=== PATIENT | female | born 1930 | race Hispanic/Latino ===

== ENCOUNTER 2017-10-23 20:26 | Emergency (ER) | payer MEDICARE, BC ==
--- NOTE | 2017-10-23 21:38 | CT ---
CT OF THE BRAIN WITHOUT CONTRAST: 10/23/17 INDICATION: Fall with head injury. COMPARISON: Prior exam dated 08/31/09. FINDINGS: There is generalized cerebral and cerebellar atrophy. No acute infarct, hemorrhage or hydrocephalus i s present. There is mild chronic small vessel white matter ischemic change which is stable. There is a contusion involving the right frontal scalp. Skull is intact. Mastoid air cells are clear. IMPRESSION: No acute intracranial abnormality. POS: [facility]
--- NOTE | 2017-10-23 21:41 | CT ---
NONCONTRAST CT CERVICAL SPINE 10/23/17 INDICATION: Fall with neck pain. COMPARISON: None. FINDINGS: no acute fracture or subluxation is evident. There is some reversal of the normal cervical lordosis. There is advanced disc degenerative disease at C5-6 and C6-7. There are some marginal osteophytes see n projecting posteriorly within the spinal canal inducing at least mild to moderate osseous central c anal narrowing at C5-6 and mild osseous neural foraminal narrowing at C6-7. The craniocervical juncti on is within normal limits. Lung apices are clear. Prevertebral soft tissues are appear within normal limits. IMPRESSION: 1. No acute fracture or subluxation evident. 2. 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 POS: [facility]
[2017-10-23 21:43] LABS: #Basophils 0.1 thou/uL (0.0-0.2); #Eosinphils 0.3 thou/uL (0.0-0.7); #Lymphocytes 2.5 thou/uL (1.20-3.40); #Monocytes 0.7 thou/uL (0.11-0.59); #Neutrophils 4.8 thou/uL (1.40-6.50); %Basophils 1.3 % (0.0-1.0); %Eosinophils 3.1 % (0.0-10.0); %Lymphocytes 30.1 % (21.0-51.0); %Monocytes 8.2 % (0.0-10.0); %Neutrophils 57.4 % (42.0-75.0); Hemoglobin 12.5 g/dL (12.0-16.0); Mean Corpuscular Hemoglobin 29.3 pg (27.0-31.0); Mean Corpuscular Volume 88.8 fl (81.0-99.0); Mean Platelet Volume 7.5 fL (7.4-10.4); Platelet Count 278 thou/uL (130-400); RBC Distribution Width 12.2 % (11.5-14.5); Red Blood Cell (RBC) Count 4.26 mill/uL (4.20-5.40); White Blood Cell (WBC) Count 8.3 thou/uL (4.8-10.8)
[2017-10-23 21:49] LABS: PTT 32.5 SEC (22.9-36.1); Prothrombin Time 13.3 SEC (12.0-14.7)
--- NOTE | 2017-10-23 21:56 | RAD ---
FOUR VIEWS OF THE LEFT ELBOW: 10/23/17 INDICATION: History of fall with left elbow pain. COMPARISON: None. IMPRESSION: No acute fracture or subluxation is evident. The radiocapitellar alignment is within normal limits. N o joint capsular distention is noted. POS: [facility]
[2017-10-23] MEDS ORDERED: Acetaminophen 500 MG TAB ONE (21:58)
[2017-10-23] MEDS ORDERED: Acetaminophen 325 MG/10.15 ML UDCUP ONE (22:01)
[2017-10-23 22:03] LABS: ALT (SGPT) 13 U/L (8-55); AST (SGOT) 20 U/L (5-34); Alkaline Phosphatase 126 U/L (40-150); Anion Gap 13 mmol/L (10-20); BUN (Urea Nitrogen) 24 mg/dL (9.8-20.1); Bilirubin, Total 0.6 mg/dL (0.2-1.2); Calc. Creatinine Clearance 0 mL/min (70-130); Calcium 9.4 mg/dL (7.8-10.44); Carbon Dioxide 25 mmol/L (23-31); Chloride 103 mmol/L (98-107); Estimated GFR-MDRD 53; Globulin 3.8 g/dL (2.4-3.5); Glucose 186 mg/dL (83-110); Potassium 3.9 mmol/L (3.5-5.1); Protein, Total 7.8 g/dL (6.0-8.3); Sodium 137 mmol/L (136-145)
[2017-10-23 22:07] LABS: CKMB 1.6 ng/mL (0-6.6); Troponin I Less than 0.010 ng/mL (< 0.028)
[2017-10-23 22:28] LABS: Bilirubin Negative (Negative); Blood, Urine Trace (Negative); Clarity CLEAR (Clear); Glucose, Urine (Dipstick) Negative (Negative); Leukocyte Moderate (Negative); Nitrite Negative (Negative); Protein, Urine (Dipstick) Negative (Neg-Trace); Specific Gravity, Urine 1.012 (1.002-1.036); Urobilinogen 0.2 mg/dL (0.2-1.0)
[2017-10-23 22:30] LABS: Bacteria/HPF None Seen HPF (None Seen); Hyaline Casts/LPF 0-3 HYALINE CAST LPF (0-3 Hyaline); Pathc Cast-AUWi Flag 0.43 (0-2.49); RBC/HPF 0-3 HPF (0-3); Squamous Epithelial 0-3 HPF (0-3); WBC/HPF 21-50 HPF (0-3)
[2017-10-23] MEDS ORDERED: Nitrofurantoin Macrocrystal 50 MG CAP PO SCH (22:45)
== END 2017-10-23 23:04 | disposition home or self-care (01) ==
LOC: ERS 20:26
DX: S00.83XA Contusion of other part of head, initial encounter (principal); W22.8XXA Striking against or struck by other objects, initial encounter
CPT/HCPCS: 36415; 70450; 72125; 80053; 81003; 81015; 82553; 83880; 84484; 85025; 85610; 85730; 87086

== ENCOUNTER 2018-12-14 15:58 | Outpatient (CLI) | payer MEDICARE, BC ==
--- NOTE | 2018-12-14 16:33 | RAD ---
Cervical spine 3 views HISTORY: Neck pain. FINDINGS: Slight reversal of the normal lordotic curvature. Disc space narrowing and prominent osteop hytosis at each level. Cervicothoracic junction is intact. No acute fracture or dislocation. IMPRESSION: Prominent osseous degenerative changes. No acute osseous abnormalities are demonstrated.
== END 2018-12-14 15:59 | disposition home or self-care (01) ==
LOC: SCSRAD 15:58
PROVIDERS: ATTEND Family Medicine
DX: M47.22 Other spondylosis with radiculopathy, cervical region (principal)
CPT/HCPCS: 72040

== ENCOUNTER 2019-10-16 12:17 | Inpatient (IN) | payer BC, MEDICARE ==
[~2019-10-16 12:17] MED LIST: Heparin 10,000 UNITS/ 10 ML VIAL ONE; Iopamidol 370 76% 100 ML VIAL ONE; Iopamidol 370 76% 50 ML VIAL FS ONE
[2019-10-16] MEDS ORDERED: Fentanyl 100 MCG/2 ML VIAL ONE (12:28)
[2019-10-16] MEDS ORDERED: Ondansetron PF 4 MG/2 ML Vial ONE ×2 (12:28→13:00)
--- NOTE | 2019-10-16 12:33 | RAD ---
Exam: Chest one view HISTORY:Chest pain Comparison: 01/29/2019 FINDINGS: Cardiac silhouette: Normal Aorta: Atherosclerosis Pulmonary vessels: Normal Costophrenic angles: Clear LUNGS: No masses or consolidation. Pneumothorax: None Osseous abnormalities: None IMPRESSION: No acute cardiopulmonary process. Atherosclerosis.
[2019-10-16 12:41] LABS: #Basophils 0.1 thou/uL (0.0-0.2); #Eosinphils 0.3 thou/uL (0.0-0.7); #Lymphocytes 2.9 thou/uL (1.20-3.40); #Monocytes 0.6 thou/uL (0.11-0.59); %Basophils 0.9 % (0.0-1.0); %Eosinophils 2.7 % (0.0-10.0); %Lymphocytes 24.1 % (21.0-51.0); %Monocytes 5.3 % (0.0-10.0); %Neutrophils 67.1 % (42.0-75.0); Hemoglobin 12.2 g/dL (12.0-16.0); Mean Corpuscular HGB CONC 33.5 g/dL (32.0-36.0); Mean Corpuscular Hemoglobin 30.8 pg (27.0-31.0); Mean Corpuscular Volume 92.1 fL (78.0-98.0); Mean Platelet Volume 8.1 fL (7.4-10.4); Platelet Count 264 thou/uL (130-400); RBC Distribution Width 11.9 % (11.5-14.5); Red Blood Cell (RBC) Count 3.97 mill/uL (4.20-5.40); White Blood Cell (WBC) Count 11.9 thou/uL (4.8-10.8)
[2019-10-16 12:57] LABS: ALT (SGPT) 11 U/L (8-55); AST (SGOT) 21 U/L (5-34); Alkaline Phosphatase 107 U/L (40-110); Anion Gap 15 mmol/L (10-20); BUN (Urea Nitrogen) 16 mg/dL (9.8-20.1); Bilirubin, Total 0.6 mg/dL (0.2-1.2); CK (CPK) 42 U/L (29-168); Calc. Creatinine Clearance 0 mL/min (70-130); Calcium 9.4 mg/dL (7.8-10.44); Carbon Dioxide 23 mmol/L (23-31); Chloride 102 mmol/L (98-107); Estimated GFR-MDRD 46; Globulin 3.3 g/dL (2.4-3.5); Glucose 200 mg/dL (83-110); Lipase 49 U/L (8-78); Potassium 4.1 mmol/L (3.5-5.1); Protein, Total 7.3 g/dL (6.0-8.3); Sodium 136 mmol/L (136-145)
[2019-10-16] MEDS ORDERED: Heparin 10,000 UNITS/1 ML VIAL ONE (13:00)
[2019-10-16] MEDS ORDERED: Nitroglycerin 100MG/250ML BOT 0 ML ONE (13:00)
[2019-10-16] MEDS ORDERED: Atropine Sulfate 1 mg/10 ml Syringe ONE (13:02)
[2019-10-16] MEDS ORDERED: Aggrastat 12.5 MG/250 ML 0 ML ONE (13:10)
[2019-10-16 13:20] LABS: CKMB 1.1 ng/mL (0-6.6)
[2019-10-16] MEDS ORDERED: Morphine 2 MG/ML SYRINGE SLOW IVP PRN (13:29)
[2019-10-16] MEDS ORDERED: Milk Of Magnesia 30 ML UDCUP PO PRN (13:29)
[2019-10-16] MEDS ORDERED: Zolpidem Tartrate 5 MG TAB PO PRN (13:29)
[2019-10-16] MEDS ORDERED: Mag-Al 1200 mg/1200 mg/30 ML UDCUP PO PRN (13:29)
[2019-10-16] MEDS ORDERED: Aspirin 81 mg Enteric Coated Tablet PO SCH (13:45)
[2019-10-16] MEDS ORDERED: Sodium Chloride 0.9% 500 ML IV SCH (13:45)
--- NOTE | 2019-10-16 14:12 | HP ---
CHIEF COMPLAINT: Chest pain. HISTORY OF PRESENT ILLNESS: Ms. Miles is a very pleasant 89-year-old female, who comes to the hospital for chest pain. She developed chest pain about 1 hour before arriving to the hospital. Initially, she had an EKG that showed inferior ST elevations with reciprocal changes, so Cardiology was called immediately with a STEMI activation. On my evaluation, Ms. Miles continued to have chest pain. She was brought immediately and emergently to the catheterization lab, where she had a heart catheterization that showed large amount of thrombus in the right coronary artery subtotal vessel, this was successfully wired, manual thrombectomy was done, and then a bare-metal stent was placed. Her symptoms resolved after this. Her heart rate, which was in the 40s, did much better as well up to the 60s. She otherwise has no other issues. PAST MEDICAL HISTORY: 1. Type 2 diabetes. 2. Hypertension. 3. Hypothyroidism. 4. History of heart murmur. OUTPATIENT MEDICATIONS: She does not have a list, however, most recent list on the record showed; 1. Sertraline at bedtime. 2. Levothyroxine 75 mcg a day. 3. Metformin 1000 mg b.i.d. 4. Senokot-S b.i.d. 5. Polyethylene glycol p.r.n. 6. Multivitamin daily. 7. Metoprolol 12.5 mg b.i.d. 8. Lorazepam 0.5 mg b.i.d. 9. Lisinopril 40 mg a day. 10. Ibuprofen p.r.n. 11. Lasix 40 mg a day. 12. Ferrous gluconate 324 mg b.i.d. 13. Dorzolamide/timolol eye drops. 14. Calcium carbonate with vitamin D3. 15. Aspirin 81 a day. 16. Amlodipine 10 mg a day. 17. Tylenol Extra Strength p.r.n. ALLERGIES: 1. TRAMADOL GIVES HER ANXIETY. 2. VERONA ASPIRIN MAKES HER ITCH, BUT SHE HAS BEEN TAKING 81 MG ASPIRIN FOR YEARS NOW WITHOUT ISSUES. FAMILY HISTORY: Noncontributory. SOCIAL HISTORY: No alcohol, tobacco, or drugs. SURGICAL HISTORY: 1. Cholecystectomy. 2. Left rotator cuff surgery. 3. LASIK eye surgery. 4. Appendectomy. 5. Recent ORIF secondary to nondisplaced left intertrochanteric femur fracture about 8 months ago here in the hospital after a fall. REVIEW OF SYSTEMS: A 12-point review of systems was done and was all negative unless stated in the history of present illness. PHYSICAL EXAMINATION: VITAL SIGNS: Temperature 97.2, pulse 72, respiratory rate 16, saturating 98% on room air, blood pressure 118/72. GENERAL: Awake, alert, and oriented x3, in no distress. HEENT: Normocephalic and atraumatic. NECK: Supple. LUNGS: Clear. CARDIOVASCULAR: S1 and S2. No S3 or S4. There is a grade 3/6 systolic murmur at the right upper sternal border. ABDOMEN: Soft. Positive bowel sounds. EXTREMITIES: No edema. SKIN: Warm and dry. LABORATORY DATA: Laboratory work was reviewed. CBC; white count of 11, otherwise unremarkable. Chemistry unremarkable except for creatinine 1.12. GFR was 46. Glucose was 200. Troponin-I was 0.098 on admission, CK-MB at 1.1. IMAGING STUDIES: Chest x-ray unremarkable, no acute cardiopulmonary process. EKG was reviewed, inferior ST elevations with reciprocal changes, sinus bradycardia. ASSESSMENT AND PLAN: 1. Inferior ST-elevation myocardial infarction. 2. Type 2 diabetes. 3. Hypertension. PLAN: 1. Status post bare-metal stent to the RCA. 2. Residual disease on the left circumflex, very small diffusely diseased vessel that is eventually occluded at 100%, not amenable to any type of revascularization. The LAD has luminal irregularities, but no flow-limiting disease, nothing that needs to be revascularized either. 3. High dose statins. 4. Continue aspirin, Brilinta. 5. We will hold metformin for now until closer to discharge. 6. Echocardiogram pending. 7. We will observe in the ICU overnight. 8. Full code. 9. PPI for stress ulcer prophylaxis. 10. Disposition, pending clinical evaluation. Job ID: [id number]
[2019-10-16 15:30] VITALS: BMI 26.8
[2019-10-16 15:32] LABS: CKMB 39.1 ng/mL (0-6.6); Troponin I 3.982 ng/mL (< 0.028)
[2019-10-16] MEDS: Acetaminophen/Codeine 30-300mg Tablet PO PRN (18:39)
[2019-10-16] MEDS: Atorvastatin Calcium 40 MG TAB PO SCH (19:59)
[2019-10-16] MEDS: TICAGRELOR 90 MG TABLET PO SCH (19:59)
[2019-10-16 20:24] LABS: CKMB 122.3 ng/mL (0-6.6)
[2019-10-17] MEDS: Acetaminophen/Codeine 30-300mg Tablet PO PRN (00:58)
[2019-10-17 03:53] LABS: #Basophils 0.1 thou/uL (0.0-0.2); #Eosinphils 0.1 thou/uL (0.0-0.7); #Lymphocytes 2.1 thou/uL (1.20-3.40); #Monocytes 0.7 thou/uL (0.11-0.59); #Neutrophils 6.2 thou/uL (1.40-6.50); %Basophils 0.8 % (0.0-1.0); %Eosinophils 1.3 % (0.0-10.0); %Lymphocytes 23.2 % (21.0-51.0); %Monocytes 7.1 % (0.0-10.0); %Neutrophils 67.7 % (42.0-75.0); Hemoglobin 10.5 g/dL (12.0-16.0); Mean Corpuscular Hemoglobin 30.7 pg (27.0-31.0); Mean Corpuscular Volume 90.3 fL (78.0-98.0); Mean Platelet Volume 8.4 fL (7.4-10.4); Platelet Count 225 thou/uL (130-400); RBC Distribution Width 11.9 % (11.5-14.5); Red Blood Cell (RBC) Count 3.42 mill/uL (4.20-5.40); White Blood Cell (WBC) Count 9.2 thou/uL (4.8-10.8)
[2019-10-17 04:17] LABS: ALT (SGPT) 38 U/L (8-55); AST (SGOT) 187 U/L (5-34); Albumin 3.2 g/dL (3.4-4.8); Alkaline Phosphatase 113 U/L (40-110); Anion Gap 12 mmol/L (10-20); BUN (Urea Nitrogen) 13 mg/dL (9.8-20.1); Bilirubin, Total 1.1 mg/dL (0.2-1.2); Calc. Creatinine Clearance 50 mL/min (70-130); Calcium 8.4 mg/dL (7.8-10.44); Carbon Dioxide 24 mmol/L (23-31); Chloride 105 mmol/L (98-107); Estimated GFR-MDRD 65; Globulin 2.8 g/dL (2.4-3.5); Glucose 115 mg/dL (83-110); Potassium 3.9 mmol/L (3.5-5.1); Sodium 137 mmol/L (136-145)
[2019-10-17] MEDS: Levothyroxine Sodium 75 MCG TAB PO SCH (06:02)
[2019-10-17] MEDS: Aspirin 81 mg Enteric Coated Tablet PO SCH (08:16)
[2019-10-17] MEDS: TICAGRELOR 90 MG TABLET PO SCH ×2 (08:16→20:53)
--- NOTE | 2019-10-17 17:16 | PDOC.CPN ---
- Subjective Date: 10/17/19 Time: 17:14 Interval history: She is doing very well. No chest pain, tightness, pressure, SOB. Walked with CR and felt well. - Review of Systems General: denies: fever/chills, weight/appetite/sleep changes, night sweats, fatigue Respiratory: denies: cough, congestion, shortness of breath, exercise intolerance Cardiovascular: denies: chest pain, palpitation, edema, paroxysmal nocturnal dyspnea, orthopnea Gastrointestinal: denies: nausea, vomiting, diarrhea, constipation, abd pain, GI bleeding Musculoskeletal: denies: pain, tenderness, stiffness, swelling, arthritis/ arthralgias Neurological: denies: numbness, syncope, seizure, weakness - Objective Allergies/Adverse Reactions: Allergies Allergy/AdvReac Type Severity Reaction Status Date / Time tramadol Allergy Intermediate Anxiety Verified 01/29/19 02:15 Visit Medications: Current Medications Acetaminophen/Codeine Phosphate (Tylenol #3) 1 tab PO Q4H PRN PRN Reason: Mild Pain (1-3) Last Admin: 10/17/19 00:58 Dose: 1 tab Al Hydroxide/Mg Hydroxide (Maalox) 30 ml PO Q3H PRN PRN Reason: Indigestion Aspirin (Ecotrin) 81 mg PO DAILY [facility] Last Admin: 10/17/19 08:16 Dose: 81 mg Atorvastatin Calcium (Lipitor) 80 mg PO HS [facility] Last Admin: 10/16/19 19:59 Dose: 80 mg Levothyroxine Sodium (Synthroid) 75 mcg PO 0600 [facility] Last Admin: 10/17/19 06:02 Dose: 75 mcg Magnesium Hydroxide (Milk Of Magnesium) 30 ml PO Q12H PRN PRN Reason: Constipation Morphine Sulfate (Morphine) 2 mg SLOW IVP Q4H PRN PRN Reason: Moderate Chest Pain (4-6) Nitroglycerin (Nitrostat) 0.4 mg SL Q5MIN PRN PRN Reason: Chest Pain Pantoprazole Sodium (Protonix) 40 mg PO DAILY [facility] Last Admin: 10/17/19 08:16 Dose: 40 mg Sertraline HCl (Zoloft) 50 mg PO HS [facility] Last Admin: 10/16/19 19:59 Dose: 50 mg Ticagrelor (Brilinta) 90 mg PO BID [facility] Last Admin: 10/17/19 08:16 Dose: 90 mg Zolpidem Tartrate (Ambien) 5 mg PO HSPRN PRN PRN Reason: Insomnia Vital Signs & Weight: Vital Signs Temp Pulse Pulse Pulse Resp BP BP 10/17/19 15:45 97.6 F 59 L 19 10/17/19 10:02 61 65 117/54 L 138/55 L 10/17/19 08:00 10/17/19 07:00 98.8 F BP Pulse Ox Pulse Ox Pulse Ox 10/17/19 15:45 155/70 H 97 10/17/19 10:02 100 98 10/17/19 08:00 100 10/17/19 07:00 Admit Weight 146 lb 9.718 oz Weight 146 lb 9.718 oz - Physical Exam General: alert & oriented x3 HEENT: mucus membranes moist Neck: supple neck Cardiac: regular rate and rhythm Lungs: normal breath sounds Neuro: grossly intact Abdomen: active bowel sounds Extremities: no edema Skin: clear Musculoskeletal: no pain - Labs Result Diagrams: 10/17/19 03:11 10/17/19 03:11 Troponin/CKMB CK-MB (CK-2) 122.3 ng/mL (0-6.6) H* 10/16/19 19:35 Troponin I 57.690 ng/mL (< 0.028) H* 10/16/19 19:36 - Telemetry Sinus rhythms and dysrhythmias: sinus rhythm - Assessment/Plan Assessment/Plan: 1. Inferior STEMI. 2. S/P BMS to the RCA 3. HTN 4. DMT2. PLAN: - Continue MILLIE for one month minimum ideally a year. - Will transfer to telemetry floor. - Will re start BB and ACEI at lower doses. - Home likely tomorrow if she remains stable.
[2019-10-17] MEDS: Nitroglycerin 0.4 MG TAB (25 Tab Bottle) SL PRN (17:49)
[2019-10-17] MEDS ORDERED: Simethicone Chewable 80 MG TAB PO PRN (18:00)
[2019-10-17] MEDS: DorzolamidE/Timolol 2%/0.5% Ophth Soln 10 ml Bottle EA EYE SCH (20:52)
[2019-10-17] MEDS: Latanoprost 0.005% Ophth Soln 2.5 ml Bottle EA EYE SCH (20:52)
[2019-10-17] MEDS: Atorvastatin Calcium 40 MG TAB PO SCH (20:53)
--- NOTE | 2019-10-17 21:47 | EKG ---
Test Reason : Blood Pressure : / mmHG Vent. Rate : 060 BPM Atrial Rate : 060 BPM P-R Int : 142 ms QRS Dur : 102 ms QT Int : 434 ms P-R-T Axes : 059 005 131 degrees QTc Int : 434 ms Normal sinus rhythm Inferior infarct (cited on or before 31-AUG-2009) Possible Anteroseptal infarct , age undetermined Abnormal ECG When compared with ECG of 29-JAN-2019 19:34, Sinus rhythm has replaced Junctional rhythm Questionable change in initial forces of Septal leads Non-specific change in ST segment in Inferior leads ST more depressed in Anterior leads Non-specific change in ST segment in Lateral leads Confirmed by FRANCES CHAVEZ, DR. Zhang ([id number]) on 10/17/2019 9:47:39 PM Referred By: TONIO Confirmed By:DR. Leatha DANIELS MD
[2019-10-18] MEDS: Levothyroxine Sodium 75 MCG TAB PO SCH (05:11)
[2019-10-18] MEDS: Aspirin 81 mg Enteric Coated Tablet PO SCH (08:45)
[2019-10-18] MEDS: DorzolamidE/Timolol 2%/0.5% Ophth Soln 10 ml Bottle EA EYE SCH ×2 (08:45→23:46)
[2019-10-18] MEDS: TICAGRELOR 90 MG TABLET PO SCH ×2 (08:45→23:44)
[2019-10-18] MEDS ORDERED: Metoprolol Tartrate 25 MG TAB PO SCH (09:00)
[2019-10-18] MEDS ORDERED: Lisinopril 2.5 MG TAB PO SCH (09:00)
[2019-10-18] MEDS ORDERED: Isosorbide Mononitrate (ER) 30 MG TAB PO SCH (14:30)
--- NOTE | 2019-10-18 16:58 | PDOC.CPN ---
- Subjective Date: 10/18/19 Time: 16:56 Interval history: She continues to have chest tightness. She states better with SL nitro. Likely from her diffusely diseased RPDA. - Review of Systems General: denies: fever/chills, weight/appetite/sleep changes, night sweats, fatigue Respiratory: denies: cough, congestion, shortness of breath, exercise intolerance Cardiovascular: reports: chest pain. denies: palpitation, edema, paroxysmal nocturnal dyspnea, orthopnea Gastrointestinal: denies: nausea, vomiting, diarrhea, constipation, abd pain, GI bleeding Musculoskeletal: denies: pain, tenderness, stiffness, swelling, arthritis/ arthralgias Neurological: denies: numbness, syncope, seizure, weakness - Objective Allergies/Adverse Reactions: Allergies Allergy/AdvReac Type Severity Reaction Status Date / Time tramadol Allergy Intermediate Anxiety Verified 01/29/19 02:15 Visit Medications: Current Medications Acetaminophen/Codeine Phosphate (Tylenol #3) 1 tab PO Q4H PRN PRN Reason: Mild Pain (1-3) Last Admin: 10/17/19 00:58 Dose: 1 tab Al Hydroxide/Mg Hydroxide (Maalox) 30 ml PO Q3H PRN PRN Reason: Indigestion Aspirin (Ecotrin) 81 mg PO DAILY [facility] Last Admin: 10/18/19 08:45 Dose: 81 mg Atorvastatin Calcium (Lipitor) 80 mg PO HS [facility] Last Admin: 10/17/19 20:53 Dose: 80 mg Dorzolamide/Timolol (Cosopt 2-0.5% Ophth Soln) 2 drop EA EYE BID [facility] Last Admin: 10/18/19 08:45 Dose: 2 drp Isosorbide Mononitrate (Imdur Er) 30 mg PO DAILY [facility] Latanoprost (Xalatan 0.005% Ophth Soln) 1 drop EA EYE HS [facility] Last Admin: 10/17/19 20:52 Dose: 1 drop Levothyroxine Sodium (Synthroid) 75 mcg PO 0600 [facility] Last Admin: 10/18/19 05:11 Dose: 75 mcg Lisinopril (Zestril) 2.5 mg PO DAILY [facility] Last Admin: 10/18/19 08:45 Dose: 2.5 mg Magnesium Hydroxide (Milk Of Magnesium) 30 ml PO Q12H PRN PRN Reason: Constipation Metoprolol Succinate (Toprol Xl) 25 mg PO DAILY [facility] Last Admin: 10/18/19 08:45 Dose: 25 mg Morphine Sulfate (Morphine) 2 mg SLOW IVP Q4H PRN PRN Reason: Moderate Chest Pain (4-6) Nitroglycerin (Nitrostat) 0.4 mg SL Q5MIN PRN PRN Reason: Chest Pain Last Admin: 10/17/19 17:49 Dose: 0.4 units Pantoprazole Sodium (Protonix) 40 mg PO DAILY [facility] Last Admin: 10/18/19 08:45 Dose: 40 mg Sertraline HCl (Zoloft) 50 mg PO HS [facility] Last Admin: 10/17/19 20:53 Dose: 50 mg Simethicone (Mylicon Chewable) 80 mg PO Q6H PRN PRN Reason: Gas Pain Ticagrelor (Brilinta) 90 mg PO BID [facility] Last Admin: 10/18/19 08:45 Dose: 90 mg Zolpidem Tartrate (Ambien) 5 mg PO HSPRN PRN PRN Reason: Insomnia Vital Signs & Weight: Vital Signs Temp Pulse Resp BP Pulse Ox 10/18/19 15:27 97.7 F 71 20 163/70 H 96 10/18/19 11:34 97.6 F 62 17 147/65 H 98 10/18/19 08:40 98.6 F 71 17 150/67 H 95 10/18/19 05:44 98.5 F 68 14 128/63 97 Admit Weight 146 lb 9.718 oz Weight 146 lb 9.718 oz - Physical Exam General: alert & oriented x3 HEENT: mucus membranes moist Neck: supple neck Cardiac: regular rate and rhythm Lungs: normal breath sounds Neuro: grossly intact Abdomen: active bowel sounds Extremities: no edema Skin: clear Musculoskeletal: no pain - Labs Result Diagrams: 10/17/19 03:11 10/17/19 03:11 Troponin/CKMB CK-MB (CK-2) 122.3 ng/mL (0-6.6) H* 10/16/19 19:35 Troponin I 57.690 ng/mL (< 0.028) H* 10/16/19 19:36 - Telemetry Sinus rhythms and dysrhythmias: sinus rhythm - Assessment/Plan Assessment/Plan: 1. Inferior STEMI. 2. S/P BMS to the RCA 3. HTN 4. DMT2. 5. Moderate PLAN: - Continue MILLIE for one month minimum ideally a year. - Continue BB and ACEI, will increase lisinopril to 10 mg daily. - Will add long acting nitro as her chest tightness likely form a very small diffusely diseased RPDA not amenable to revascularization. - Will observe over night.
[2019-10-18] MEDS: Atorvastatin Calcium 40 MG TAB PO SCH (23:43)
[2019-10-18] MEDS: Latanoprost 0.005% Ophth Soln 2.5 ml Bottle EA EYE SCH (23:45)
[2019-10-19] MEDS: Nitroglycerin 0.4 MG TAB (25 Tab Bottle) SL PRN (00:53)
[2019-10-19] MEDS: Levothyroxine Sodium 75 MCG TAB PO SCH (05:48)
[2019-10-19] MEDS ORDERED: Isosorbide Mononitrate (ER) 30 MG TAB PO SCH (09:00)
[2019-10-19] MEDS ORDERED: Lisinopril 10 MG TAB PO SCH (09:00)
[2019-10-19] MEDS: DorzolamidE/Timolol 2%/0.5% Ophth Soln 10 ml Bottle EA EYE SCH (09:39)
[2019-10-19] MEDS: Aspirin 81 mg Enteric Coated Tablet PO SCH (09:39)
[2019-10-19] MEDS: TICAGRELOR 90 MG TABLET PO SCH (09:40)
--- NOTE | 2019-10-19 14:46 | DIS ---
DATE OF ADMISSION: 10/16/2019 DATE OF DISCHARGE: 10/19/2019 DISCHARGING PHYSICIAN: Robbie David MD. PRIMARY DIAGNOSES: 1. Inferior ST-elevation myocardial infarction. 2. Coronary artery disease. 3. Type 2 diabetes. 4. Hypertension. PROCEDURES PERFORMED: 1. Percutaneous coronary angiogram showed right femoral approach. 2. Bare metal stents to the right coronary artery, 3.0 x 32 mm to the proximal right coronary artery. HOSPITAL COURSE: Ms. Miles is a pleasant 89-year-old female, who comes to the hospital with chest pain. She was diagnosed with inferior ST-elevation GA. She was found to have an occluded RCA, which was stented successfully with a bare-metal stent. She also had an occluded left circumflex, which was chronic with bridging collaterals very small vessel with diffuse disease. This was left alone. Her LAD was patent. She did well postoperatively. She did have a lesion on the RPDA, which was too small to stent. She did experience some angina a few days after which resolved with sublingual nitroglycerin, so she was started on long-acting nitroglycerin and actually is doing much better now. Her echo during her admission showed a normal EF at 60% to 65%. She did have moderate aortic stenosis, which will be monitor in the next few months to years. She is very stable on day of discharge. She has no more angina. No issues with her groin. She has been walking around without problems. DISCHARGE MEDICATIONS: The only pertinent thing to mention is the addition of Brilinta 90 mg twice a day, which she will need for at least a month, ideally a year, as well as high dose statin, Lipitor 80 mg a day. Aspirin is to be 81 mg with Brilinta. Her metoprolol was changed to Toprol-XL 25 mg once a day. Her amlodipine was stopped. Her sertraline was stopped due to prolonged QT. FOLLOWUP: Followup appointments with myself in 2 weeks. With PCP next available. Over 40 minutes were spent at bedside for discharge. Job ID: [id number]
[2019-10-19 15:08] VITALS: BP 139/63; TEMP 98.8
--- NOTE | 2019-10-19 22:26 | EKG ---
Test Reason : CP Blood Pressure : / mmHG Vent. Rate : 066 BPM Atrial Rate : 066 BPM P-R Int : 160 ms QRS Dur : 100 ms QT Int : 428 ms P-R-T Axes : 050 -28 269 degrees QTc Int : 448 ms Normal sinus rhythm Possible Anterior infarct (cited on or before 31-AUG-2009) Consider inferior and lateral ischemia. Can not rule out old inferior AL. Abnormal ECG When compared with ECG of 16-OCT-2019 14:00, (Unconfirmed) Questionable change in initial forces of Anterior leads Non-specific change in ST segment in Inferior leads ST no longer depressed in Anterior leads T wave inversion now evident in Inferior leads Confirmed by Long ZAVALA ([id number]) on 10/19/2019 10:26:15 PM Referred By: TONIO Confirmed By:Long ZAVALA
--- NOTE | 2019-10-19 22:28 | EKG ---
Test Reason : Blood Pressure : / mmHG Vent. Rate : 062 BPM Atrial Rate : 062 BPM P-R Int : 152 ms QRS Dur : 098 ms QT Int : 482 ms P-R-T Axes : 052 -31 -84 degrees QTc Int : 489 ms Normal sinus rhythm Left axis deviation T wave abnormality, consider inferior ischemia Can not rule out recent inferior NM T wave abnormality, consider anterolateral ischemia Prolonged QT Abnormal ECG When compared with ECG of 16-OCT-2019 18:43, (Unconfirmed) Borderline criteria for Anterior infarct are no longer Present Confirmed by Long ZAVALA ([id number]) on 10/19/2019 10:28:17 PM Referred By: TONIO Confirmed By:Long ZAVALA
--- NOTE | 2019-10-19 22:41 | EKG ---
Test Reason : Blood Pressure : / mmHG Vent. Rate : 063 BPM Atrial Rate : 063 BPM P-R Int : 122 ms QRS Dur : 098 ms QT Int : 494 ms P-R-T Axes : 032 -13 269 degrees QTc Int : 505 ms Normal sinus rhythm Prolonged QT Abnormal ECG When compared with ECG of 17-OCT-2019 09:23, (Unconfirmed) No significant change was found Confirmed by Long ZAVALA ([id number]) on 10/19/2019 10:41:39 PM Referred By: Confirmed By:Long ZAVALA
--- NOTE | 2019-10-20 14:52 | EKG ---
Test Reason : Blood Pressure : / mmHG Vent. Rate : 060 BPM Atrial Rate : 060 BPM P-R Int : 146 ms QRS Dur : 102 ms QT Int : 420 ms P-R-T Axes : 038 018 114 degrees QTc Int : 420 ms Normal sinus rhythm Possible Anterior infarct , age undetermined Abnormal ECG Confirmed by ANGELINA CHAVEZ, SAMUEL ([id number]), research editor JOELLE MESA ([id number]) on 10/20/2019 2:51:54 PM Referred By: Confirmed By:SAMUEL ALFARO MD
--- NOTE | 2019-10-20 14:52 | EKG ---
Test Reason : Blood Pressure : / mmHG Vent. Rate : 055 BPM Atrial Rate : 055 BPM P-R Int : 154 ms QRS Dur : 108 ms QT Int : 462 ms P-R-T Axes : 028 042 106 degrees QTc Int : [address] elevation consider inferior injury or acute infarct * ACUTE ME * Consider right ventricular involvement in acute inferior infarct Abnormal ECG Confirmed by ANGELINA CHAVEZ, SAMUEL ([id number]), publications editor JOELLE MESA ([id number]) on 10/20/2019 2:51:54 PM Referred By: Confirmed By:SAMUEL ALFARO MD
== END 2019-10-19 16:45 | disposition home or self-care (01) | DRG 249 ==
LOC: ERS 12:17 → CCU 12:54 → CCL 12:58 → CCU 14:28 → 2NO 10-17 13:44
PROVIDERS: ADMIT Internal Medicine Cardiovascular Disease; ATTEND Internal Medicine Cardiovascular Disease
PROC: 02703DZ Dilation of Coronary Artery, One Artery with Intraluminal Device, Percutaneous Approach (ICD-10-PCS; principal; 2019-10-16)
PROC: 4A023N7 Measurement of Cardiac Sampling and Pressure, Left Heart, Percutaneous Approach (ICD-10-PCS; 2019-10-16)
PROC: B2151ZZ Fluoroscopy of Left Heart using Low Osmolar Contrast (ICD-10-PCS; 2019-10-16)
PROC: B2111ZZ Fluoroscopy of Multiple Coronary Arteries using Low Osmolar Contrast (ICD-10-PCS; 2019-10-16)
DX: I21.19 ST elevation (STEMI) myocardial infarction involving other coronary artery of inferior wall (principal); E11.9 Type 2 diabetes mellitus without complications; I10 Essential (primary) hypertension; E03.9 Hypothyroidism, unspecified; G47.00 Insomnia, unspecified; I35.0 Nonrheumatic aortic (valve) stenosis; I25.10 Atherosclerotic heart disease of native coronary artery without angina pectoris; I45.81 Long QT syndrome; Z79.82 Long term (current) use of aspirin; Z79.84 Long term (current) use of oral hypoglycemic drugs; Z79.890 Hormone replacement therapy; Z79.899 Other long term (current) drug therapy; Z88.5 Allergy status to narcotic agent; Z88.8 Allergy status to other drugs, medicaments and biological substances; Z90.49 Acquired absence of other specified parts of digestive tract
CPT/HCPCS: 36415; 36416; 71045; 80053; 82550; 82553; 83690; 84484; 85025; 85347; 92928; 92973; 93005; 93010; 93306; 93458; 93798; 96365; 96375; C1757; C1769; C1876; C1887; J0461; J1644; J2405; J3010; J3246; Q9967

== ENCOUNTER 2019-10-22 16:37 | Observation (INO) | payer MEDICARE ==
--- NOTE | 2019-10-22 17:42 | CT ---
CT Brain WO Con History: Fall. Trauma. Comparison: None. Findings: The eye density along the anterior falx is unchanged from 2018 likely artifactual due to hy perostosis of the bilateral frontal bones. No acute hemorrhage or infarct. No midline shift or mass effect. Left middle cranial fossa dural calc ifications are similar. Left forehead soft tissue contusion with intact underlying calvarium. Impression: Left forehead superficial soft tissue contusion otherwise no acute posttraumatic intracra nial sequelae.
[2019-10-22 17:51] LABS: #Eosinphils 0.4 thou/uL (0.0-0.7); #Lymphocytes 1.3 thou/uL (1.20-3.40); #Monocytes 0.6 thou/uL (0.11-0.59); #Neutrophils 6.8 thou/uL (1.40-6.50); %Basophils 0.3 % (0.0-1.0); %Eosinophils 4.9 % (0.0-10.0); %Lymphocytes 14.1 % (21.0-51.0); %Monocytes 6.7 % (0.0-10.0); %Neutrophils 74.1 % (42.0-75.0); Hemoglobin 11.6 g/dL (12.0-16.0); Mean Corpuscular HGB CONC 33.8 g/dL (32.0-36.0); Mean Corpuscular Hemoglobin 30.5 pg (27.0-31.0); Mean Corpuscular Volume 90.4 fL (78.0-98.0); Mean Platelet Volume 7.7 fL (7.4-10.4); Platelet Count 297 thou/uL (130-400); RBC Distribution Width 12.5 % (11.5-14.5); White Blood Cell (WBC) Count 9.2 thou/uL (4.8-10.8)
[2019-10-22 17:58] LABS: PTT 34.4 SEC (22.9-36.1); Prothrombin Time 12.8 SEC (12.0-14.7)
--- NOTE | 2019-10-22 18:00 | CT ---
CT Facial Bones WO Con History: Fall. Periorbital swelling Comparison: None. Findings: Left forehead soft tissue contusion. The zygoma, zygomatic arch, medial orbital giraldo, late ral orbital giraldo, orbital floors, orbital roofs are intact. The temporal manubrial joints are intact. Erosion around the remaining mandibular canine tooth. No nasal bone fracture. Leftward osseous nasal septal spur, chronic. No retrobulbar hematoma. Impression: Left forehead soft tissue contusion without underlying facial fracture.
[2019-10-22 18:07] LABS: Bilirubin Negative (Negative); Blood, Urine Negative (Negative); Clarity Clear (Clear); Glucose, Urine (Dipstick) Normal (Negative); Leukocyte Negative Leu/uL (Negative); Nitrite Negative (Negative); Protein, Urine (Dipstick) Negative (Neg-Trace); Urobilinogen Normal mg/dL (Less than 2)
--- NOTE | 2019-10-22 18:08 | RAD ---
XR Forearm Lt 2 View STANDARD History: Pain after a fall Comparison: None. Findings: Bones are mildly demineralized. No acute displaced fracture. Impression: Osseous demineralization without fracture appreciated.
[2019-10-22 18:12] LABS: ALT (SGPT) 25 U/L (8-55); AST (SGOT) 36 U/L (5-34); Albumin 3.9 g/dL (3.4-4.8); Alkaline Phosphatase 152 U/L (40-110); Anion Gap 16 mmol/L (10-20); BUN (Urea Nitrogen) 12 mg/dL (9.8-20.1); Bilirubin, Total 1.1 mg/dL (0.2-1.2); Calc. Creatinine Clearance 0 mL/min (70-130); Carbon Dioxide 20 mmol/L (23-31); Chloride 104 mmol/L (98-107); Estimated GFR-MDRD 65; Globulin 3.5 g/dL (2.4-3.5); Glucose 148 mg/dL (83-110); Potassium 4.1 mmol/L (3.5-5.1); Protein, Total 7.4 g/dL (6.0-8.3); Sodium 136 mmol/L (136-145)
[2019-10-22] MEDS ORDERED: Nitroglycerin 0.4 MG TAB (25 Tab Bottle) PO PRN (19:32)
[2019-10-22 19:46] LABS: CKMB 2.9 ng/mL (0-6.6)
[2019-10-22] MEDS ORDERED: HumaLOG 300 UNITS/3 ML VIAL SC PRN (19:56)
[2019-10-22] MEDS ORDERED: Dextrose 5% in Water 1,000 ML IV PRN (19:56)
[2019-10-22] MEDS ORDERED: Dextrose 50% Abboject 50 ML SYRINGE SLOW IVP PRN (19:56)
--- NOTE | 2019-10-22 20:28 | HP ---
CHIEF COMPLAINT: Fall and questionable syncope. HISTORY OF PRESENT ILLNESS: Ms. Miles is an 89-year-old female, who recently had a cardiac stent for history of AK, presented to the emergency room after a fall with left facial pain and swelling. The patient stated that she was at home and when she went to go to the bathroom, she lifted the toilet lid, stood up, and was immediately dizzy, but she is unsure if she also tripped and she fell on her face. She did not fully pass out. The patient denies chest pain or palpitations or shortness of breath. Workup in the emergency room including imaging studies just soft tissue swelling and contusion. No intracranial acute pathology or facial bone pathology. Initial workup in the emergency room, the patient had troponin of 1.9, but this is trending down from the last troponin, which was as high as 56 around few days ago. EKG showed sinus rhythm with nonspecific changes. The patient is being admitted to the hospital for further management. PAST MEDICAL HISTORY: 1. STEMI. 2. Diabetes mellitus. 3. Hypertension. 4. Glaucoma. PAST SURGICAL HISTORY: 1. Cardiac stent. 2. Left hip surgery. 3. Cataract surgery. PAST PSYCHIATRIC HISTORY: Depression. SOCIAL HISTORY: Denies smoking or alcohol drinking. Lives at home with family. FAMILY HISTORY: Reviewed and noncontributory. ALLERGIES: NO KNOWN ALLERGIES. HOME MEDICATIONS: See home medication reconciliation form for updated medications. REVIEW OF SYSTEMS: Review of 14 systems negative except what is mentioned in history of present illness. PHYSICAL EXAMINATION: GENERAL: The patient is awake and alert, in mild distress. VITAL SIGNS: Blood pressure is 159/70, pulse is 79, respiratory rate is 16, temperature is 98, and pulse oximetry 99% on room air. HEENT: Head, normocephalic. Left forehead contusion and swelling. Left eye swollen. NECK: Supple. No JVD. CHEST: Fair bilateral air entry. HEART: S1 and S2. Regular. ABDOMEN: Soft and nontender. Bowel sounds present. NEUROLOGIC: Awake, alert, and oriented x3. No focal deficits. PSYCH: Normal mood. EXTREMITIES: No clubbing or cyanosis. GENITOURINARY: No suprapubic tenderness. No flank tenderness. LABORATORY DATA: Troponin 1.96. Glucose 148. Forearm x-ray, no acute pathology. CT facial bone and CT of the brain, no acute finding, just left forehead soft tissue contusion without underlying fracture bone. Hemoglobin is 11.6. ASSESSMENT: 1. Fall/presyncope ?.. 2. Head trauma/left facial contusion/laceration. 3. History of myocardial infarction. 4. History of cardiac stent. 5. Hypertension. 6. Diabetes mellitus, type 2. PLAN: 1. Admit. 2. Telemonitoring. 3. Orthostatic vital signs. 4. Serial troponins. 5. Reconcile home medications. 6. DVT prophylaxis as appropriate. 7. Expected length of stay at least 1 midnight if patient is stable and further workup negative. Job ID: [id number]
[2019-10-22 22:37] LABS: Critical Call Chem Troponin I RESULT DECREASING; Troponin I 1.463 ng/mL (< 0.028)
[2019-10-23] MEDS ORDERED: Aspirin 325 mg Enteric Coated Tablet PO SCH (09:00)
--- NOTE | 2019-10-23 12:51 | PDOC.HOSPP ---
- Subjective Encounter Date: 10/23/19 Encounter Time: 12:45 Subjective: pt up in chair no complains of pain - Objective Vital Signs & Weight: Vital Signs (12 hours) Temp Pulse Resp BP BP BP Pulse Ox 10/23/19 11:33 98.1 F 73 15 149/67 H 98 10/23/19 08:00 97.7 F 83 17 141/65 H 99 10/23/19 04:31 149/83 H 185/70 H 140/91 H 10/23/19 04:28 98.5 F 82 18 97 Weight Weight 137 lb 1.6 oz I&O: 10/22/19 10/23/19 10/24/19 06:59 06:59 06:59 Intake Total 480 Output Total 1650 Balance -1170 Result Diagrams: 10/22/19 17:43 10/22/19 17:43 Additional Labs: Accuchecks 10/23/19 10/23/19 10/22/19 10:59 06:33 21:00 POC Glucose 197 H 150 H 201 H Hospitalist ROS - Review of Systems Cardiovascular: denies: chest pain, palpitations, orthopnea, paroxysmal noc. dyspnea, edema, light headedness, other Gastrointestinal: denies: nausea, vomiting, abdominal pain, diarrhea, constipation, melena, hematochezia, other Genitourinary: denies: dysuria, frequency, incontinence, hematuria, retention, other - Exam ENT - other findings: left eye has bruse, left forhead has a small cut. Heart: negative: RRR, no murmur, no gallops, no rubs, normal peripheral pulses, irregular, diminshed peripheral pulses, murmur present, II/IV, III/IV Respiratory: negative: CTAB, no wheezes, no rales, no ronchi, normal chest expansion, no tachypnea, normal percussion, rales, rhonchi, tachypneic, wheezes Gastrointestinal: negative: soft, non-tender, non-distended, normal bowel sounds , no palpable masses, no hepatomegaly, no splenomegaly, no bruit, no guarding, no rigidity, tender to palpation, distended, diminished bowl sounds, voluntary guarding Hosp A/P (1) Fall Code(s): W19.XXXA - UNSPECIFIED FALL, INITIAL ENCOUNTER Status: Acute (2) CAD (coronary artery disease) Code(s): I25.10 - ATHSCL HEART DISEASE OF [place] CORONARY ARTERY W/O ANG PCTRS Status: Acute (3) Hyperlipemia Code(s): E78.5 - HYPERLIPIDEMIA, UNSPECIFIED Status: Acute - Plan pt is on asa/statin/brillanta will continue given her recent stent. will watch her overnight. she did not have a syncopal episode. she stated that she went to the bathroom and tried to grab her walker which slipped off her hands and she fell. she does have moderate but pt did not have a syncopal episode. will monitor. will get carotid ultrasound.
[2019-10-23] MEDS ORDERED: TICAGRELOR 90 MG TABLET PO SCH (13:00)
[2019-10-23] MEDS ORDERED: Lorazepam 0.5 MG TAB PO SCH (13:30)
[2019-10-23] MEDS ORDERED: Levothyroxine Sodium 75 MCG TAB PO SCH (14:00)
[2019-10-23] MEDS: metFORMIN 500 MG TAB PO SCH (16:03)
--- NOTE | 2019-10-23 16:08 | ULT ---
BILATERAL CAROTID DUPLEX ULTRASOUND: HISTORY: Syncope TECHNIQUE: Grayscale, color-flow and spectral Doppler ultrasound imaging of the extracranial carotid artery syst ems was performed bilaterally. FINDINGS: Intimal thickness of the right common carotid artery measures 0.09 cm with intimal thickness of the l eft common carotid artery measuring 0.14 cm There is no hemodynamically significant stenosis in the bilateral internal carotid arteries according to the peak systolic velocities and the ICA/CCA ratios. The peak systolic velocity in the right ICA measures 69.6 cm/s. The peak systolic velocity in the left ICA measures 74.2 cm/s. The right IC A/CCA ratio is 1.08, and the left ICA/CCA ratio is 1.31. There is an elevated peak systolic velocity in the left external carotid artery suggesting significan t stenosis. Vertebral arteries: Left vertebral artery is not well imaged, but there is suggestion of flow within the left vertebral artery demonstrating normal direction. Normal directional flow is seen in the right vertebral artery. IMPRESSION: 1. No hemodynamically significant stenosis in the bilateral internal carotid arteries. 2. Normal directional flow in the right vertebral artery. Left vertebral artery is not well evaluated .
[2019-10-23] MEDS: Lorazepam 0.5 MG TAB PO SCH (20:51)
[2019-10-23] MEDS: TICAGRELOR 90 MG TABLET PO SCH (20:51)
[2019-10-23] MEDS ORDERED: Latanoprost 0.005% Ophth Soln 2.5 ml Bottle EA EYE SCH (21:00)
[2019-10-23] MEDS ORDERED: Atorvastatin Calcium 40 MG TAB PO SCH ×2 (21:00)
[2019-10-23] MEDS: DorzolamidE/Timolol 2%/0.5% Ophth Soln 10 ml Bottle EA EYE SCH (21:16)
[2019-10-24] MEDS ORDERED: Levothyroxine Sodium 75 MCG TAB PO SCH (06:00)
[2019-10-24 06:38] LABS: #Basophils 0.1 thou/uL (0.0-0.2); #Eosinphils 0.4 thou/uL (0.0-0.7); #Lymphocytes 1.8 thou/uL (1.20-3.40); #Monocytes 0.7 thou/uL (0.11-0.59); #Neutrophils 5.1 thou/uL (1.40-6.50); %Basophils 1.1 % (0.0-1.0); %Eosinophils 4.8 % (0.0-10.0); %Lymphocytes 22.9 % (21.0-51.0); %Monocytes 8.1 % (0.0-10.0); %Neutrophils 63.1 % (42.0-75.0); Hemoglobin 11.1 g/dL (12.0-16.0); Mean Corpuscular HGB CONC 34.1 g/dL (32.0-36.0); Mean Corpuscular Hemoglobin 30.5 pg (27.0-31.0); Mean Corpuscular Volume 89.6 fL (78.0-98.0); Platelet Count 305 thou/uL (130-400); RBC Distribution Width 12.3 % (11.5-14.5); Red Blood Cell (RBC) Count 3.63 mill/uL (4.20-5.40)
[2019-10-24 07:00] LABS: Anion Gap 10 mmol/L (10-20); BUN (Urea Nitrogen) 10 mg/dL (9.8-20.1); Calc. Creatinine Clearance 53 mL/min (70-130); Calcium 8.9 mg/dL (7.8-10.44); Carbon Dioxide 24 mmol/L (23-31); Chloride 106 mmol/L (98-107); Estimated GFR-MDRD 74; Glucose 117 mg/dL (83-110); Potassium 3.4 mmol/L (3.5-5.1); Sodium 137 mmol/L (136-145)
[2019-10-24] MEDS: TICAGRELOR 90 MG TABLET PO SCH (08:32)
[2019-10-24] MEDS: metFORMIN 500 MG TAB PO SCH (08:32)
[2019-10-24] MEDS: Lorazepam 0.5 MG TAB PO SCH (08:33)
[2019-10-24] MEDS: DorzolamidE/Timolol 2%/0.5% Ophth Soln 10 ml Bottle EA EYE SCH (08:34)
[2019-10-24] MEDS ORDERED: Aspirin 81 mg Enteric Coated Tablet PO SCH (09:00)
[2019-10-24] MEDS ORDERED: Potassium Chloride 20 MEQ TAB PO SCH (10:30)
[2019-10-24 11:58] VITALS: BP 174/74; TEMP 97
[2019-10-24 12:39] VITALS: BMI 24.3
--- NOTE | 2019-10-25 08:13 | DIS ---
DATE OF ADMISSION: 10/22/2019 DATE OF DISCHARGE: 10/24/2019 DISCHARGE DIAGNOSES: 1. Mechanical fall. 2. Coronary artery disease, status post recent stent. 3. Hyperlipidemia. HOSPITAL COURSE: The patient is a very pleasant 89-year-old female who initially presented to the hospital with a mechanical fall. I did speak with her and she stated that while she was going to the bathroom, the roller got a little bit further and she was unable to grab the roller and the roller fell and so that she. She did not have a syncopal episode. She had no dizziness or lightheadedness. I did confirm with the son that she has been on aspirin and Brilinta since that was not on her home medication list. Also, she is also on a statin. I did order carotid Dopplers, which did not show any internal carotid abnormalities. However, she does have a left external carotid stenosis. She will follow that up with her outpatient doctor. The patient feels stable. She did have a facial CT and a brain CT that only indicated on the facial CT that she had some soft tissue contusion. The brain CT indicated left forehead superficial soft tissue contusion and a facial CT indicated she has left forehead soft tissue contusion also without any fractures. Her vitals have been stable. She will be discharged home. I did speak with the son stating that if any changes occur, to bring her back to the hospital. HOME MEDICATIONS: Will be as of the following; 1. Brilinta 90 mg twice a day. 2. Atorvastatin 80 mg at bedtime. 3. Aspirin 81 mg daily. 4. Lasix 40 mg daily. 5. Lisinopril 40 mg daily. 6. Levothyroxine 75 mcg daily. 7. Metoprolol 25 mg at bedtime. 8. Metformin 500 mg b.i.d. PHYSICAL EXAMINATION: VITAL SIGNS: Temperature of 97, pulse 76, respiratory rate 17, 98% on room air, and blood pressure 144/66. GENERAL: She is awake, alert, and oriented x3. Does not appear in distress. CV: S1 and S2 present. No murmurs or gallops. HEENT: She does have a laceration to her left forehead and also some ecchymotic area around her left eye. Otherwise, she is going to be discharged home. She will follow up with her Primary and her cardiology. Job ID: [id number]
--- NOTE | 2019-10-27 14:22 | EKG ---
Test Reason : FALL Blood Pressure : / mmHG Vent. Rate : 073 BPM Atrial Rate : 073 BPM P-R Int : 112 ms QRS Dur : 094 ms QT Int : 396 ms P-R-T Axes : 026 -34 115 degrees QTc Int : 436 ms Normal sinus rhythm Left axis deviation Left ventricular hypertrophy with repolarization abnormality Cannot rule out Septal infarct , age undetermined Abnormal ECG Reconfirmed by TANIYA YOO ([id number]), order editor JOELLE MESA ([id number]) on 10/27/2019 2:22:02 PM Referred By: Confirmed By:TANIYA Mcconnell
== END 2019-10-24 14:47 | disposition home or self-care (01) ==
LOC: ERS 16:37 → 2NO 18:59
PROVIDERS: ADMIT Internal Medicine; ATTEND Internal Medicine
DX: S00.83XA Contusion of other part of head, initial encounter (principal); I25.10 Atherosclerotic heart disease of native coronary artery without angina pectoris; I65.22 Occlusion and stenosis of left carotid artery; I10 Essential (primary) hypertension; E11.9 Type 2 diabetes mellitus without complications; E78.5 Hyperlipidemia, unspecified; F32.9 Major depressive disorder, single episode, unspecified; Z79.82 Long term (current) use of aspirin; Z79.84 Long term (current) use of oral hypoglycemic drugs; Z79.899 Other long term (current) drug therapy; Z95.5 Presence of coronary angioplasty implant and graft; Z88.5 Allergy status to narcotic agent; W01.0XXA Fall on same level from slipping, tripping and stumbling without subsequent striking against object, initial encounter; Y92.002 Bathroom of unspecified non-institutional (private) residence as the place of occurrence of the external cause
CPT/HCPCS: 12011; 51701; 70450; 70486; 73090; 80048; 80053; 81003; 82553; 82962 ×3; 84484 ×3; 85025 ×2; 85610; 85730; 93005; 93880; 94760 ×3; 96360; 99285; G0378 ×4; 36415; 36416; A4353

== ENCOUNTER 2019-11-09 17:14 | Observation (INO) | payer MEDICARE ==
[2019-11-09 17:40] LABS: #Basophils 0.1 thou/uL (0.0-0.2); #Eosinphils 0.5 thou/uL (0.0-0.7); #Lymphocytes 2.8 thou/uL (1.20-3.40); #Monocytes 0.6 thou/uL (0.11-0.59); %Eosinophils 4.7 % (0.0-10.0); %Lymphocytes 25.4 % (21.0-51.0); %Monocytes 5.8 % (0.0-10.0); %Neutrophils 63.2 % (42.0-75.0); Hemoglobin 12.1 g/dL (12.0-16.0); Mean Corpuscular HGB CONC 31.8 g/dL (32.0-36.0); Mean Corpuscular Hemoglobin 29.3 pg (27.0-31.0); Mean Corpuscular Volume 92.1 fL (78.0-98.0); Mean Platelet Volume 7.9 fL (7.4-10.4); Platelet Count 341 thou/uL (130-400); RBC Distribution Width 12.6 % (11.5-14.5); Red Blood Cell (RBC) Count 4.13 mill/uL (4.20-5.40)
[2019-11-09 18:04] LABS: ALT (SGPT) 13 U/L (8-55); AST (SGOT) 26 U/L (5-34); Albumin 4.2 g/dL (3.4-4.8); Alkaline Phosphatase 119 U/L (40-110); Anion Gap 15 mmol/L (10-20); BUN (Urea Nitrogen) 21 mg/dL (9.8-20.1); Bilirubin, Total 0.8 mg/dL (0.2-1.2); CK (CPK) 32 U/L (29-168); Calc. Creatinine Clearance 0 mL/min (70-130); Calcium 10.1 mg/dL (7.8-10.44); Carbon Dioxide 28 mmol/L (23-31); Chloride 100 mmol/L (98-107); Estimated GFR-MDRD 46; Globulin 4.2 g/dL (2.4-3.5); Glucose 134 mg/dL (83-110); Potassium 4.6 mmol/L (3.5-5.1); Protein, Total 8.4 g/dL (6.0-8.3); Sodium 138 mmol/L (136-145)
--- NOTE | 2019-11-09 18:06 | RAD ---
Chest one view HISTORY: Chest pain. COMPARISON: 10/16/2019. FINDINGS: Cardiac silhouette and pulmonary vasculature are unremarkable. Mediastinum is midline with aortic calcification. Subtle area of mild parenchymal opacity projects over the right posterior lung base. Upper lobes are clear. No evidence of pneumothorax. Postoperative changes left shoulder. IMPRESSION : Subtle right posterior basilar infiltrate. Clinical correlation regarding other signs and symptoms of right basilar pneumonitis is required. Atherosclerosis.
[2019-11-09] MEDS ORDERED: Aspirin Chewable 81 MG TAB ONE (18:08)
[2019-11-09] MEDS ORDERED: Nitroglycerin 2% Ointment 1 INCH/1 GM Packet ONE (18:08)
[2019-11-09 18:23] LABS: CKMB 1.1 ng/mL (0-6.6)
[2019-11-09] MEDS ORDERED: Sodium Chloride 0.9% 1,000 ML IV SCH (19:15)
[2019-11-09] MEDS ORDERED: Cefepime 2 GM VIAL ONE (19:19)
[2019-11-09] MEDS ORDERED: Enoxaparin Sodium 30 MG/0.3 ML SYRINGE SC SCH (19:30)
--- NOTE | 2019-11-09 20:27 | HP ---
HISTORY OF PRESENT ILLNESS: Ms. Miles is an 89-year-old female with a medical history of STEMI (inferior STEMI in September of 2019, status post stent placement), type 2 diabetes, and hypertension, who presented for chest pain. The patient had inferior STEMI in September of 2019 and stent was placed, after which the patient was adherent to her medications. After discharge, the patient presented again on October 21 that is four days after discharge for a fall hitting her head and was diagnosed with; however, she was diagnosed with a mechanical fall. She was observed for 2 nights and discharged. She has been feeling well ever since. However, this morning, she was woken up by chest pain, substernal, stabbing like, radiating to the back, not exacerbated by activity, but alleviated by nitroglycerin, which she took once and also by several aspirin tablets, 2 to 3 tablets. On encounter, lying comfortably in bed and endorses improvement of her chest pain. Denies fatigue, syncope, presyncope, fever, chills, night sweats, palpitations, shortness of breath, abdominal pain, diarrhea, heat intolerance, dysuria, burning on urination, increased urinary frequency, focal weakness, recent sick contacts or recent travel to crowded places or outside the country. ED COURSE: The patient was administered with nitroglycerin, aspirin 324 mg and IV fluids 500 mL. EKG showed new inferior and lateral T-wave inversions with no ST elevation, left axis deviation, and left posterior fascicular block. Troponin was 0.041. The patient was admitted to telemetry observation for additional management. REVIEW OF SYSTEMS: Full review of systems was negative with the exception of that mentioned in the HPI. PAST MEDICAL HISTORY: Inferior STEMI in (September 2019), type 2 diabetes, hypertension, and glaucoma. PAST SURGICAL HISTORY: Cardiac stent, left hip surgery and cataract surgery. SOCIAL HISTORY: Denies smoking or alcohol drinking. Lives at home with family. FAMILY HISTORY: Hypertension and diabetes. ALLERGIES: NO KNOWN DRUG ALLERGIES. HOME MEDICATIONS: See EMR, will be reconciled. PHYSICAL EXAMINATION: VITAL SIGNS: Blood pressure 155/69, pulse 78, respiratory rate 18, temperature 97.7 oral, pain 0, oxygen saturation 98% on room air. GENERAL: Lying comfortably in bed, in no apparent distress. HEENT: Normocephalic, atraumatic. Left forehead contusion with overlying dressing. No periauricular, submandibular, or neck lymphadenopathy. No thyromegaly appreciated. HEART: Regular rate and rhythm. No gallops or rubs and there was 2/6 decrescendo systolic murmur heard in the mitral valve area. LUNGS: Clear to auscultation bilaterally. No rales, wheezing, or rhonchi. ABDOMEN: Soft, nontender. Normal bowel sounds. NEUROLOGIC: Awake, alert, and oriented x3. No focal deficits. PSYCHIATRIC: Proper mood and affect. LABORATORY DATA AND IMAGING: Laboratory and imaging were reviewed. Chest x-ray showed no acute cardiopulmonary changes and EKG showed inferior and lateral T- wave inversions, left axis deviation with left posterior fascicular block, otherwise unremarkable. ASSESSMENT AND PLAN: Ms. Miles is an 89-year-old female with a medical history of recent ST-elevation myocardial infarction, adherent to her medications, who presents with atypical chest pain. 1. Atypical chest pain. Chest pain is stabbing rather than pressure-like and not precipitated by activity; however, alleviated by nitroglycerin. On encounter, chest pain has already resolved. EKG showing new inferolateral ischemia. The patient appears dry on exam and endorses reduced oral intake. Wells score very low risk for pulmonary embolism. The patient has been mobilizing ever since her discharge. Even though most specific findings for pulmonary embolism are right heart strain with inferior T-wave inversions, we will not pursue workup of pulmonary embolism at this point. Troponin 0.04. a. Plan: I. We will continue the patient's home medications including aspirin, Brilinta, and statin. II. We will trend EKG and troponin. If either of them show sign of progression of ischemia despite supplementation of fluids, we will consider starting on anticoagulation. III. Echocardiogram. IV. Admit to telemetry. 2. Type 2 diabetes. a. The patient managed with oral diabetic medication. b. We will start on sliding scale and diabetic and heart healthy diet. 3. Hypertension. a. We will restart the patient's home medications in order to avoid further strain on the heart. 4. Disposition/prophylaxis. a. The patient is full code. b. The patient's surrogate decision maker is her son, Johnson. c. Deep venous thrombosis prophylaxis, enoxaparin. d. GI prophylaxis, no indication. 5. Expected length of stay, one midnight and this patient's EKG or cardiac biomarkers suggest worsening cardiac ischemia. Job ID: [id number] MTDD
[2019-11-09 20:54] LABS: Troponin I 0.029 ng/mL (< 0.028)
[2019-11-09 22:09] VITALS: BMI 24.5
[2019-11-09] MEDS ORDERED: Nitroglycerin 0.4 MG TAB (25 Tab Bottle) SL PRN (22:34)
[2019-11-09] MEDS ORDERED: TICAGRELOR 90 MG TABLET PO SCH (22:45)
[2019-11-09] MEDS ORDERED: Atorvastatin Calcium 40 MG TAB PO SCH (22:45)
[2019-11-10 05:39] LABS: Anion Gap 11 mmol/L (10-20); BUN (Urea Nitrogen) 17 mg/dL (9.8-20.1); Calc. Creatinine Clearance 45 mL/min (70-130); Calcium 9.1 mg/dL (7.8-10.44); Carbon Dioxide 25 mmol/L (23-31); Chloride 107 mmol/L (98-107); Estimated GFR-MDRD 64; Glucose 124 mg/dL (83-110); Potassium 3.5 mmol/L (3.5-5.1); Sodium 139 mmol/L (136-145)
[2019-11-10] MEDS: Levothyroxine Sodium 75 MCG TAB PO SCH (05:43)
[2019-11-10] MEDS: Sodium Chloride 0.9% 1,000 ML IV SCH ×3 (08:33→20:45)
[2019-11-10] MEDS: Acetaminophen 500 MG TAB PO SCH ×2 (08:35→20:38)
[2019-11-10] MEDS: Aspirin Chewable 81 MG TAB PO SCH (08:36)
[2019-11-10] MEDS: Calcium Carbonate 600 MG + Vit D TAB PO SCH (08:36)
[2019-11-10] MEDS: Lisinopril 20 MG TAB PO SCH (08:36)
[2019-11-10] MEDS: Lorazepam 0.5 MG TAB PO SCH ×2 (08:37→20:38)
[2019-11-10] MEDS: Enoxaparin Sodium 30 MG/0.3 ML SYRINGE SC SCH (08:37)
[2019-11-10] MEDS: TICAGRELOR 90 MG TABLET PO SCH ×2 (08:37→20:38)
[2019-11-10] MEDS ORDERED: Aspirin Chewable 81 MG TAB PO SCH (12:00)
[2019-11-10] MEDS ORDERED: Isosorbide Dinitrate 20 MG TAB PO SCH (14:00)
--- NOTE | 2019-11-10 14:13 | PDOC.HOSPP ---
- Subjective Encounter Date: 11/10/19 Encounter Time: 09:00 Subjective: no overnight evnets. this morning feeling better, symptoms resolved, and has no complaints. - Objective Vital Signs & Weight: Vital Signs (12 hours) Temp Pulse Pulse Pulse Pulse Resp BP 11/10/19 11:20 98.1 F 65 16 11/10/19 10:28 66 68 68 11/10/19 09:40 66 80 66 11/10/19 08:36 147/69 H 11/10/19 07:02 98.6 F 74 20 11/10/19 04:00 98.4 F 63 18 BP BP BP BP Pulse Ox 11/10/19 11:20 125/55 L 95 11/10/19 10:28 125/68 139/56 L 141/60 H 11/10/19 09:40 131/56 L 109/60 125/68 11/10/19 08:36 11/10/19 07:02 147/69 H 97 11/10/19 04:00 146/60 H 96 Weight Weight 134 lb 8 oz I&O: 11/09/19 11/10/19 11/11/19 06:59 06:59 06:59 Intake Total 1000 Output Total 900 450 Balance -900 550 Result Diagrams: 11/09/19 17:30 11/10/19 05:05 Hospitalist ROS - Review of Systems Constitutional: denies: fever, chills, sweats, weakness, malaise, other Respiratory: denies: cough, dry, shortness of breath, hemoptysis, SOB with excertion, pleuritic pain, sputum, wheezing, other Cardiovascular: denies: chest pain, palpitations, orthopnea, paroxysmal noc. dyspnea, light headedness Gastrointestinal: denies: nausea, vomiting, abdominal pain, diarrhea Genitourinary: denies: dysuria, frequency, incontinence, hematuria - Medication Medications: Active Medications Generic Name Dose Route Start Last Admin Trade Name Freq PRN Reason Stop Dose Admin Acetaminophen 500 mg 11/10/19 09:00 11/10/19 08:35 Tylenol PO 500 mg BID OSCAR Administration Calcium/Vitamin D 1 tab 11/10/19 09:00 11/10/19 08:36 Caltrate 600 + Vit D PO 1 tab DAILY OSCAR Administration Enoxaparin Sodium 30 mg 11/10/19 09:00 11/10/19 08:37 Lovenox SC 30 mg 0900 OSCAR Administration Sodium Chloride 1,000 mls @ 75 mls/hr 11/09/19 22:37 11/10/19 08:33 Normal Saline 0.9% IV 1,000 mls .[id number] OSCAR Administration Levothyroxine Sodium 75 mcg 11/10/19 06:00 11/10/19 05:43 Synthroid PO 75 mcg 0600 OSCAR Administration Lisinopril 40 mg 11/10/19 09:00 11/10/19 08:36 Zestril PO 40 mg DAILY OSCAR Administration Lorazepam 0.5 mg 11/10/19 09:00 11/10/19 08:37 Ativan PO 0.5 mg BID OSCAR Administration Sodium Chloride 10 ml 11/10/19 09:00 11/10/19 08:26 Flush - Normal Saline IVF Not Given Q12HR OSCAR Ticagrelor 90 mg 11/10/19 09:00 11/10/19 08:37 Brilinta PO 90 mg BID OSCAR Administration - Exam General Appearance: NAD, awake alert Heart: RRR, no murmur, no gallops, no rubs, normal peripheral pulses Respiratory: CTAB, no wheezes, no rales, no ronchi, normal chest expansion Gastrointestinal: soft, non-tender, non-distended, normal bowel sounds Hosp A/P - Plan #atypical chest pain -resolved -troponin stable -repeat EKG (11/09) showing extension of t-wave inversion to V4 (yesterday V5 and V6) -consult cardiology considering recent cardiac history, fall (apparently mechanical), dizziness when during PT today, and repeat EKG; may benefit from stress test to assess CAD treatment effectiveness otherwise, management unchanged
--- NOTE | 2019-11-10 16:05 | EKG ---
Test Reason : Blood Pressure : / mmHG Vent. Rate : 069 BPM Atrial Rate : 069 BPM P-R Int : 158 ms QRS Dur : 098 ms QT Int : 428 ms P-R-T Axes : 051 -23 255 degrees QTc Int : 458 ms Normal sinus rhythm T wave abnormality, consider inferolateral ischemia Abnormal ECG Confirmed by STEPHANIE KOWALSKI ([id number]) on 11/10/2019 4:05:03 PM Referred By: ROLAN Confirmed By:STEPHANIE KOWALSKI
[2019-11-10] MEDS: DorzolamidE/Timolol 2%/0.5% Ophth Soln 10 ml Bottle EA EYE SCH (20:37)
[2019-11-10] MEDS ORDERED: Atorvastatin Calcium 40 MG TAB PO SCH (21:00)
[2019-11-10] MEDS ORDERED: Latanoprost 0.005% Ophth Soln 2.5 ml Bottle EA EYE SCH (21:00)
[2019-11-11] MEDS: Levothyroxine Sodium 75 MCG TAB PO SCH (06:17)
--- NOTE | 2019-11-11 06:19 | CON ---
DATE OF CONSULTATION: 11/10/2019 REASON FOR CONSULTATION: Recurrent chest pain. HISTORY OF PRESENT ILLNESS: Ms. Miles is a pleasant 89-year-old woman, who is a patient Dr. Robbie David. She underwent a successful stent placement after presenting with acute myocardial infarction in September. She also had chronic occlusion of the circumflex artery. She states recently she developed hypertension. She does not know how high her blood pressure was at that time. She developed chest pressure during this time. She states she took nitroglycerin with improvement of symptoms. Given the above, she presented to the emergency room. She currently is pain free. PAST MEDICAL HISTORY: Diabetes mellitus, hypertension, CAD status post [place] and stent placement to the right coronary artery, hip surgery, cataract surgery. SOCIAL HISTORY: No current tobacco or alcohol use. ALLERGIES: NONE. REVIEW OF SYSTEMS: A 10-point review of systems is reviewed and is as above, otherwise negative. PHYSICAL EXAMINATION: VITAL SIGNS: Blood pressure 122/65, pulse 73, temperature 99.1. GENERAL: The patient is a pleasant female, who is in no acute distress. The patient appears their stated age. NEUROLOGIC: The patient is alert and oriented x3 with no focal neurologic deficits. HEENT: Sclerae without icterus. Mouth has moist mucous membranes with normal pallor. NECK: No JVD. Carotid upstroke brisk. No bruits bilaterally. LUNGS: Clear to auscultation with unlabored respirations. BACK: No scoliosis or kyphosis. CARDIAC: Regular rate and rhythm with normal S1 and S2. No S3 or S4 noted. No significant rubs, murmurs, thrills, or gallops noted throughout the precordium. PMI is not displaced. There is no parasternal heave. ABDOMEN: Soft, nontender, nondistended. No peritoneal signs present. No hepatosplenomegaly. No abnormal striae. EXTREMITIES: 2+ femoral and 2+ dorsalis pedis pulses. No cyanosis, clubbing, or edema. SKIN: No gross abnormalities. PERTINENT LABORATORY DATA: Hemoglobin 12.1. Troponin negative. CK-MB negative. IMPRESSION: 1. Recurrent chest pain. 2. Hypertension. 3. Diabetes mellitus. RECOMMENDATIONS: Ms. Miles' symptoms may likely be secondary to hypertension and demand ischemia to the completely occluded circumflex artery. I would recommend increasing her isosorbide to 60 mg one p.o. q.a.m. We will also keep overnight and watch her blood pressure, make adjustments appropriately. At this point, given no acute changes in her EKG, and negative troponin, I would recommend a more conservative approach. Job ID: [id number]
[2019-11-11 06:24] LABS: Anion Gap 9 mmol/L (10-20); BUN (Urea Nitrogen) 12 mg/dL (9.8-20.1); Calc. Creatinine Clearance 48 mL/min (70-130); Calcium 8.8 mg/dL (7.8-10.44); Carbon Dioxide 25 mmol/L (23-31); Chloride 111 mmol/L (98-107); Estimated GFR-MDRD 69; Glucose 111 mg/dL (83-110); Magnesium 2.1 mg/dL (1.6-2.6); Potassium 3.6 mmol/L (3.5-5.1); Sodium 141 mmol/L (136-145)
[2019-11-11] MEDS: DorzolamidE/Timolol 2%/0.5% Ophth Soln 10 ml Bottle EA EYE SCH (08:45)
[2019-11-11] MEDS: Calcium Carbonate 600 MG + Vit D TAB PO SCH (08:45)
[2019-11-11] MEDS: Enoxaparin Sodium 30 MG/0.3 ML SYRINGE SC SCH (08:45)
[2019-11-11] MEDS: TICAGRELOR 90 MG TABLET PO SCH (08:46)
[2019-11-11] MEDS: Lorazepam 0.5 MG TAB PO SCH (08:46)
[2019-11-11] MEDS: Aspirin Chewable 81 MG TAB PO SCH (08:46)
[2019-11-11] MEDS: Lisinopril 20 MG TAB PO SCH ×2 (08:48→08:58)
[2019-11-11] MEDS ORDERED: Amlodipine 10 MG TAB PO SCH (09:00)
[2019-11-11] MEDS ORDERED: Isosorbide Dinitrate 20 MG TAB PO SCH ×2 (09:00)
[2019-11-11] MEDS: Acetaminophen 500 MG TAB PO SCH (09:26)
[2019-11-11] MEDS: Sodium Chloride 0.9% 1,000 ML IV SCH (10:26)
[2019-11-11 11:46] VITALS: TEMP 98.1
[2019-11-11 12:03] VITALS: BP 121/98
--- NOTE | 2019-11-11 15:13 | PDOC.CPN ---
- Subjective Date: 11/11/19 Time: 15:11 Interval history: No new issues. No chest pain since increased Imdur and better BP control. - Review of Systems General: denies: fever/chills, weight/appetite/sleep changes, night sweats, fatigue Respiratory: denies: cough, congestion, shortness of breath, exercise intolerance Cardiovascular: denies: chest pain, palpitation, edema, paroxysmal nocturnal dyspnea, orthopnea Gastrointestinal: denies: nausea, vomiting, diarrhea, constipation, abd pain, GI bleeding Musculoskeletal: denies: pain, tenderness, stiffness, swelling, arthritis/ arthralgias Neurological: denies: numbness, syncope, seizure, weakness - Objective Allergies/Adverse Reactions: Allergies Allergy/AdvReac Type Severity Reaction Status Date / Time tramadol Allergy Intermediate Anxiety Verified 10/22/19 21:01 aspirin [From [facility]ilda Aspirin] Allergy Verified 11/10/19 03:15 Visit Medications: Current Medications Acetaminophen (Tylenol) 500 mg PO BID [facility] Amlodipine Besylate (Norvasc) 10 mg PO DAILY [facility] Last Admin: 11/11/19 08:46 Dose: 10 mg Aspirin (Aspirin Chewable) 81 mg PO DAILY [facility] Last Admin: 11/11/19 08:46 Dose: 81 mg Atorvastatin Calcium (Lipitor) 80 mg PO HS [facility] Last Admin: 11/10/19 20:38 Dose: 80 mg Calcium/Vitamin D (Caltrate 600 + Vit D) 1 tab PO DAILY [facility] Last Admin: 11/11/19 08:45 Dose: 1 tab Dorzolamide/Timolol (Cosopt 2-0.5% Ophth Soln) 2 drop EA EYE BID [facility] Last Admin: 11/11/19 08:45 Dose: 2 drop Enoxaparin Sodium (Lovenox) 30 mg SC 0900 [facility] Last Admin: 11/11/19 08:45 Dose: 30 mg Sodium Chloride (Normal Saline 0.9%) 1,000 mls @ 75 mls/hr IV .[id number] [facility] Last Admin: 11/11/19 10:26 Dose: 1,000 mls Isosorbide Dinitrate (Isordil) 60 mg PO DAILY [facility] Last Admin: 11/11/19 08:50 Dose: 60 mg Latanoprost (Xalatan 0.005% Ophth Soln) 1 drop EA EYE [facility] Last Admin: 11/10/19 20:39 Dose: 1 drop Levothyroxine Sodium (Synthroid) 75 mcg PO 0600 [facility] Last Admin: 11/11/19 06:17 Dose: 75 mcg Lisinopril (Zestril) 40 mg PO DAILY [facility] Last Admin: 11/11/19 08:58 Dose: Not Given Lorazepam (Ativan) 0.5 mg PO BID [facility] Last Admin: 11/11/19 08:46 Dose: 0.5 mg Metoprolol Succinate (Toprol Xl) 25 mg PO HS [facility] Last Admin: 11/10/19 20:38 Dose: 25 mg Nitroglycerin (Nitrostat) 0.4 mg SL Q5MIN PRN PRN Reason: Chest Pain Sertraline HCl (Zoloft) 50 mg PO HSPRN PRN PRN Reason: Anxiety Sodium Chloride (Flush - Normal Saline) 10 ml IVF Q12HR [facility] Last Admin: 11/11/19 08:51 Dose: Not Given Sodium Chloride (Flush - Normal Saline) 10 ml IVF PRN PRN PRN Reason: Saline Flush Ticagrelor (Brilinta) 90 mg PO BID [facility] Last Admin: 11/11/19 08:46 Dose: 90 mg Vital Signs & Weight: Vital Signs Temp Pulse Pulse Pulse Resp BP BP 11/11/19 11:45 98.1 F 73 16 11/11/19 10:01 80 81 121/98 H 11/11/19 08:58 146/67 H 11/11/19 08:46 68 146/67 H 11/11/19 07:46 98.4 F 64 16 11/11/19 03:29 98.7 F 70 16 BP BP Pulse Ox 11/11/19 11:45 121/59 L 94 L 11/11/19 10:01 101/53 L 11/11/19 08:58 11/11/19 08:46 11/11/19 07:46 143/60 H 97 11/11/19 03:29 135/56 L 98 Weight 134 lb - Physical Exam General: alert & oriented x3 HEENT: mucus membranes moist Neck: supple neck Cardiac: regular rate and rhythm Lungs: normal breath sounds Neuro: grossly intact Abdomen: active bowel sounds Extremities: no edema Skin: clear Musculoskeletal: no pain - Labs Result Diagrams: 11/09/19 17:30 04/17/20 05:54 Troponin/CKMB CK-MB (CK-2) 1.1 ng/mL (0-6.6) 11/09/19 17:30 Troponin I 0.029 ng/mL (< 0.028) H 11/09/19 20:17 - Telemetry Sinus rhythms and dysrhythmias: sinus rhythm - Assessment/Plan Assessment/Plan: 1. Chronic stable angina 2. HTN 3. CAD, s/p PCI to RCA 3 weeks ago PLAN: - Continue increased dose of Imdur. - November discharge home - Follow up in 4 weeks in the office or as scheduled.
[2019-11-11] MEDS ORDERED: Acetaminophen 500 MG TAB PO SCH (21:00)
--- NOTE | 2019-11-12 09:49 | EKG ---
Test Reason : Blood Pressure : / mmHG Vent. Rate : 065 BPM Atrial Rate : 065 BPM P-R Int : 088 ms QRS Dur : 110 ms QT Int : 448 ms P-R-T Axes : 000 -40 224 degrees QTc Int : 465 ms Sinus rhythm with short OK Left axis deviation Left ventricular hypertrophy with repolarization abnormality Cannot rule out Septal infarct , age undetermined Inferior infarct , age undetermined Abnormal ECG Confirmed by SHANTA FUNES DO ([id number]), publishing editor JOVITA GHOTRA ([id number]) on 11/12/2019 9:49:23 AM Referred By: Confirmed By:SHANTA FUNES DO
--- NOTE | 2019-11-12 11:38 | DIS ---
DATE OF ADMISSION: 11/09/2019 DATE OF DISCHARGE: 11/11/2019 HOSPITAL COURSE: Ms. Miles is an 89-year-old female with medical history of recent STEMI, status post stent placement, who presented with atypical chest pain. 1. Atypical chest pain. EKG showed inferolateral T-wave inversions, which were different compared to October 21 the date of Ms. Miles's previous discharge. 2. Cardiology was consulted and increased isosorbide dinitrate from 30 mg to 60 mg. 3. The patient's chest pain resolved hours following presentation. She was diagnosed with chronic stable angina. 4. She was discharged with increased Imdur to 60 mg daily and followup appointments with her air support control officer, Dr. David within a month. PHYSICAL EXAMINATION: GENERAL: No apparent distress. Awake and alert. HEART: Regular rate and rhythm. No murmurs, gallops, or rubs. Normal peripheral pulses. RESPIRATORY: Clear to auscultation bilaterally. No wheezes, rales, or rhonchi. Normal chest expansion. GI: Soft, nontender, nondistended. Normal bowel sounds. EXTREMITIES: No edema. DISCHARGE MEDICATIONS: The only modified medication was Imdur, which was changed from 30 mg to 60 mg. Otherwise, medications were unchanged as compared to previous discharge in September. Job ID: [id number]
== END 2019-11-11 16:05 | disposition home or self-care (01) ==
LOC: ERS 17:14 → 2SE 19:17
PROVIDERS: ADMIT Internal Medicine; ATTEND Internal Medicine
DX: I25.118 Atherosclerotic heart disease of native coronary artery with other forms of angina pectoris (principal); I25.82 Chronic total occlusion of coronary artery; I25.2 Old myocardial infarction; E11.9 Type 2 diabetes mellitus without complications; I10 Essential (primary) hypertension; Z79.02 Long term (current) use of antithrombotics/antiplatelets; Z79.82 Long term (current) use of aspirin; Z79.84 Long term (current) use of oral hypoglycemic drugs; Z79.899 Other long term (current) drug therapy; Z88.5 Allergy status to narcotic agent; Z88.6 Allergy status to analgesic agent; Z95.5 Presence of coronary angioplasty implant and graft
CPT/HCPCS: 71045; 80048 ×2; 80053; 82550; 82553; 83690; 83735 ×2; 83880; 84484 ×2; 85025; 93005 ×2; 96361 ×4; 96365; 96372 ×3; 97110; 97116 ×2; 97139 ×3; 97530; 99285; G0378 ×4; J0692; J1650 ×3; 36415; 93010

== ENCOUNTER 2022-04-09 14:25 | Inpatient (IN) | payer MEDICARE ==
[2022-04-09 15:37] LABS: #Eosinphils 0.1 thou/uL (0.0-0.7); #Lymphocytes 1.2 thou/uL (1.20-3.40); #Monocytes 0.3 thou/uL (0.11-0.59); #Neutrophils 8.1 thou/uL (1.40-6.50); %Basophils 0.1 % (0.0-1.0); %Lymphocytes 11.9 % (21.0-51.0); %Monocytes 3.5 % (0.0-10.0); %Neutrophils 83.6 % (42.0-75.0); Hemoglobin 12.3 g/dL (12.0-16.0); Mean Corpuscular HGB CONC 32.9 g/dL (32.0-36.0); Mean Corpuscular Hemoglobin 28.8 pg (27.0-31.0); Mean Corpuscular Volume 87.5 fL (78.0-98.0); Mean Platelet Volume 7.1 fL (7.4-10.4); Platelet Count 342 thou/uL (130-400); RBC Distribution Width 12.7 % (11.5-14.5); Red Blood Cell (RBC) Count 4.27 mill/uL (4.20-5.40); White Blood Cell (WBC) Count 9.7 thou/uL (4.8-10.8)
[2022-04-09 15:59] LABS: ALT (SGPT) 8 U/L (8-55); AST (SGOT) 18 U/L (5-34); Albumin 3.5 g/dL (3.4-4.8); Alkaline Phosphatase 101 U/L (40-110); Anion Gap 16 mmol/L (10-20); BUN (Urea Nitrogen) 21 mg/dL (9.8-20.1); Bilirubin, Total 0.9 mg/dL (0.2-1.2); Calc. Creatinine Clearance 0 mL/min (70-130); Calcium 8.9 mg/dL (7.8-10.44); Carbon Dioxide 25 mmol/L (23-31); Chloride 94 mmol/L (98-107); Estimated GFR 23; Glucose 224 mg/dL (83-110); Lipase 33 U/L (8-78); Potassium 3.9 mmol/L (3.5-5.1); Protein, Total 7.5 g/dL (5.8-8.1); Sodium 131 mmol/L (136-145)
[2022-04-09] MEDS ORDERED: Piperacillin/Tazobactam 4.5 GM VIAL ONE ×2 (17:30→17:36)
[2022-04-09] MEDS ORDERED: Ondansetron PF 4 MG/2 ML Vial ONE ×2 (17:30→17:36)
[2022-04-09] MEDS ORDERED: Morphine 4 MG/ML VIAL ONE ×2 (17:31→17:36)
[2022-04-09] MEDS ORDERED: Dextrose 5% in Water 1,000 ML IV PRN (18:31)
[2022-04-09] MEDS ORDERED: Dextrose 50% Abboject 50 ML SYRINGE SLOW IVP PRN (18:31)
[2022-04-09] MEDS ORDERED: HumaLOG 300 UNITS/3 ML VIAL SC PRN ×2 (18:31)
[2022-04-09] MEDS ORDERED: Ondansetron PF 4 MG/2 ML Vial IVP PRN (18:32)
[2022-04-09] MEDS ORDERED: Ondansetron ODT 4 MG TAB PO PRN (18:32)
[2022-04-09] MEDS ORDERED: Morphine 4 MG/ML VIAL SLOW IVP PRN (18:34)
[2022-04-09] MEDS: Sodium Chloride 0.9% 1,000 ML IV SCH (18:35)
[2022-04-09] MEDS ORDERED: hydrALAZINE 20 MG/ML VIAL SLOW IVP PRN (18:35)
[2022-04-09] MEDS ORDERED: Electrolyte Replacement Protocol 1 EACH FS SCH (18:45)
[2022-04-09 20:23] VITALS: BMI 24.0
[2022-04-10 01:56] LABS: Bacteria/HPF None Seen HPF (None Seen); Bilirubin Negative (Negative); Blood, Urine 1+ (Negative); Clarity Clear (Clear); Glucose, Urine (Dipstick) Normal (Negative); Ketone, Urine Negative (Negative); Leukocyte 25 Leu/uL (Negative); Nitrite Negative (Negative); Protein, Urine (Dipstick) 20 mg/dL (Neg-Trace); Specific Gravity, Urine 1.011 (1.002-1.036); Squamous Epithelial 0-3 HPF (0-3); Urobilinogen Normal mg/dL (Less than 2)
[2022-04-10 01:58] LABS: Urine Culture Reflex Yes Yes
[2022-04-10] MEDS ORDERED: Piperacillin/Tazobactam 4.5 GM in Sodium Chloride 0.9% 100 ML IVPB SCH (02:00)
[2022-04-10] MEDS: Sodium Chloride 0.9% 1,000 ML IV SCH ×2 (04:36→13:19)
[2022-04-10 06:31] LABS: #Eosinphils 0.1 thou/uL (0.0-0.7); #Lymphocytes 1.5 thou/uL (1.20-3.40); #Monocytes 0.5 thou/uL (0.11-0.59); #Neutrophils 7.7 thou/uL (1.40-6.50); %Basophils 0.3 % (0.0-1.0); %Eosinophils 0.8 % (0.0-10.0); %Lymphocytes 15.1 % (21.0-51.0); %Monocytes 4.8 % (0.0-10.0); %Neutrophils 78.9 % (42.0-75.0); Hemoglobin 10.4 g/dL (12.0-16.0); Mean Corpuscular HGB CONC 32.5 g/dL (32.0-36.0); Mean Corpuscular Hemoglobin 28.5 pg (27.0-31.0); Mean Corpuscular Volume 87.8 fL (78.0-98.0); Mean Platelet Volume 7.1 fL (7.4-10.4); Platelet Count 291 thou/uL (130-400); RBC Distribution Width 12.5 % (11.5-14.5); Red Blood Cell (RBC) Count 3.63 mill/uL (4.20-5.40); White Blood Cell (WBC) Count 9.8 thou/uL (4.8-10.8)
[2022-04-10 06:54] LABS: Anion Gap 13 mmol/L (10-20); BUN (Urea Nitrogen) 17 mg/dL (9.8-20.1); Calc. Creatinine Clearance 23 mL/min (70-130); Calcium 8.1 mg/dL (7.8-10.44); Carbon Dioxide 25 mmol/L (23-31); Chloride 101 mmol/L (98-107); Estimated GFR 30; Glucose 151 mg/dL (83-110); Magnesium 1.8 mg/dL (1.6-2.6); Potassium 3.8 mmol/L (3.5-5.1); Sodium 135 mmol/L (136-145)
[2022-04-10] MEDS ORDERED: Magnesium 2 GM/50 ML(in water) 2 GM in Premix Bag 1 BAG IVPB SCH (08:00)
[2022-04-10] MEDS ORDERED: Piperacillin/Tazobactam 3.375 GM in Sodium Chloride 0.9% 100 ML IVPB SCH (14:00)
[2022-04-10 16:31] VITALS: BP 148/73; TEMP 97.8
== END 2022-04-10 18:46 | disposition home or self-care (01) | DRG 392 ==
LOC: ERS 14:25 → T4-A 17:42
PROVIDERS: ADMIT Internal Medicine; ATTEND Internal Medicine
DX: K57.32 Diverticulitis of large intestine without perforation or abscess without bleeding (principal); N17.9 Acute kidney failure, unspecified; Z20.822 Contact with and (suspected) exposure to COVID-19; E78.5 Hyperlipidemia, unspecified; E11.22 Type 2 diabetes mellitus with diabetic chronic kidney disease; I12.9 Hypertensive chronic kidney disease with stage 1 through stage 4 chronic kidney disease, or unspecified chronic kidney disease; N18.30 Chronic kidney disease, stage 3 unspecified; I25.10 Atherosclerotic heart disease of native coronary artery without angina pectoris; N20.0 Calculus of kidney; I25.2 Old myocardial infarction; Z88.6 Allergy status to analgesic agent; Z88.5 Allergy status to narcotic agent; Z99.3 Dependence on wheelchair; Z95.5 Presence of coronary angioplasty implant and graft; Z90.49 Acquired absence of other specified parts of digestive tract; Z98.49 Cataract extraction status, unspecified eye; Z98.890 Other specified postprocedural states; Z82.3 Family history of stroke; Z79.899 Other long term (current) drug therapy; Z79.84 Long term (current) use of oral hypoglycemic drugs; Z79.890 Hormone replacement therapy; Z79.82 Long term (current) use of aspirin
CPT/HCPCS: 36415; 36416; 74176; 80048; 80053; 81001; 83690; 83735; 84484; 85025; 87086; 93005; 96374; 96375; J2270; J2405; J2543; J3475; J3490; J7050; U0003; U0005